=== PATIENT | female | born 1995 | race African-American/Black ===

== ENCOUNTER 2017-04-02 19:43 | Emergency (ER) | payer OTHER ==
[~2017-04-02] VITALS: Ht 157.5 cm; Wt 59.0 kg
[~2017-04-02 19:43] MED LIST: PENICILLIN V P500 MG PO; TYLENOL EXTRA500 MG PO
[2017-04-02] MEDS ORDERED: PRENATAL GUMMI1 EACH (19:51)
[2017-04-02] MEDS ORDERED: [UNRECOGNIZED DRUG - REMARK] (19:52)
[2017-04-02 20:24] LABS: URINE BILIRUBIN NEGATIVE (Negative); URINE BLOOD NEGATIVE (Negative); URINE CLARITY CLEAR; URINE COLOR YELLOW; URINE GLUCOSE-RANDOM NEGATIVE (Negative); URINE KETONES TRACE (Negative); URINE LEUKOCYTES NEGATIVE (Negative); URINE NITRITE NEGATIVE (Negative); URINE PROTEIN TRACE (Negative); URINE SPECIFIC GRAVITY >= 1.030 (1.005-1.030); URINE UROBILINOGEN 0.2 E.U./dl (0.2-1.0)
[2017-04-02] MEDS ORDERED: FLAGYL500 MG PO (20:45)
[2017-04-02 20:50] VITALS: BP 124/75
== END 2017-04-02 20:51 | disposition home or self-care (01) ==
LOC: M.ERS 19:43
PROVIDERS: Physician Assistant
DX: N76.0 Acute vaginitis (principal); Z21 Asymptomatic human immunodeficiency virus [HIV] infection status

== ENCOUNTER 2017-07-09 18:06 | Emergency (ER) | payer OTHER, MEDICAID ==
[~2017-07-09] VITALS: Ht 157.5 cm; Wt 51.7 kg
[~2017-07-09 18:06] MED LIST changes: +FLAGYL500 MG PO; +PRENATAL GUMMI1 EACH; +[UNRECOGNIZED DRUG - REMARK]
[2017-07-09 18:35] LABS: ABSOLUTE EOSINOPHILS 0.1 thou/uL (0.0-0.7); ABSOLUTE LYMPHOCYTES 1.4 thou/uL (0.8-5.3); ABSOLUTE MONOCYTES 0.4 thou/uL (0.0-1.2); ABSOLUTE NEUTROPHILS 4.5 thou/uL (1.6-8.1); BASOPHILS 0.6 %; EOSINOPHILS 1.3 %; HEMATOCRIT 42.7 % (37.0-47.0); HEMOGLOBIN 13.5 gm/dL (12.0-15.0); LYMPHOCYTES 22.2 %; MCH 25.2 pg (26.0-34.0); MCHC 31.5 g/dL (28.0-37.0); MONOCYTES 6.9 %; MPV 8.3 fl. (7.2-11.1); NUCLEATED RBCS 0 /100WBC; PLATELET COUNT* 237 thou/uL (150-400); RBC 5.34 mil/uL (4.20-5.00); RDW-CV 19.8 % (10.5-14.5); WBC 6.4 thou/uL (4.0-11.0)
[2017-07-09 18:41] LABS: CALCIUM 9.1 mg/dL (8.5-10.1); POTASSIUM 3.2 mmol/L (3.5-5.1)
[2017-07-09 18:44] LABS: URINE BILIRUBIN NEGATIVE (Negative); URINE BLOOD 2+ (Negative); URINE CLARITY CLEAR; URINE COLOR YELLOW; URINE GLUCOSE-RANDOM NEGATIVE (Negative); URINE KETONES NEGATIVE (Negative); URINE LEUKOCYTES-REFLEX NEGATIVE (Negative); URINE NITRITE-REFLEX NEGATIVE (Negative); URINE PROTEIN TRACE (Negative); URINE SPECIFIC GRAVITY >= 1.030 (1.005-1.030); URINE UROBILINOGEN 0.2 E.U./dl (0.2-1.0)
[2017-07-09 18:45] LABS: ALBUMIN 3.4 g/dL (3.4-5.0); TOTAL BILIRUBIN 0.3 mg/dL (<0.1-1.0); TOTAL PROTEIN 8.8 g/dL (6.4-8.2)
[2017-07-09 18:55] LABS: MUCUS >6 Heavy strn/LPF (None Seen); SQUAMOUS >10 Many /LPF (0-3)
[2017-07-09 18:56] LABS: URINE WBC-REFLEX 0-5 Rare /HPF (0-5)
[2017-07-09 18:57] LABS: HYALINE CASTS 0-3 Few /LPF (None Seen)
[2017-07-09 18:58] LABS: BACTERIA-REFLEX 1-9 Few /HPF (None Seen); CRYSTALS None Seen /LPF (None Seen); URINE RBC 0-2 Rare /HPF (0-2)
[2017-07-09] MEDS ORDERED: MIRALAX17 GM PO (19:25)
[2017-07-09] MEDS ORDERED: HYDROCODONE-AP1 EAC6 PO (19:25)
[2017-07-09] MEDS ORDERED: NAPROSYN500 MG PO (19:26)
[2017-07-09] MEDS ORDERED: ACETAMINOPHEN-1 EAC1 PO (19:26)
[2017-07-09 19:54] VITALS: BP 97/54
== END 2017-07-09 19:55 | disposition home or self-care (01) ==
LOC: M.ERS 18:06
PROVIDERS: Physician Assistant
DX: R10.30 Lower abdominal pain, unspecified (principal)

== ENCOUNTER 2017-09-20 11:47 | Emergency (ER) | payer OTHER, MEDICAID ==
[~2017-09-20] VITALS: Ht 157.5 cm; Wt 49.9 kg
[~2017-09-20 11:47] MED LIST changes: +ACETAMINOPHEN-1 EAC1 PO; +HYDROCODONE-AP1 EAC6 PO; +MIRALAX17 GM PO; +NAPROSYN500 MG PO
[2017-09-20] MEDS ORDERED: STRIBILD TABLE1 EACH PO (12:03)
[2017-09-20 12:37] LABS: URINE BILIRUBIN NEGATIVE (Negative); URINE BLOOD 1+ (Negative); URINE CLARITY CLEAR; URINE COLOR YELLOW; URINE GLUCOSE-RANDOM NEGATIVE (Negative); URINE KETONES NEGATIVE (Negative); URINE LEUKOCYTES-REFLEX NEGATIVE (Negative); URINE NITRITE-REFLEX NEGATIVE (Negative); URINE PROTEIN NEGATIVE (Negative); URINE SPECIFIC GRAVITY >= 1.030 (1.005-1.030); URINE UROBILINOGEN 0.2 E.U./dl (0.2-1.0)
[2017-09-20 12:53] LABS: BACTERIA-REFLEX 1-9 Few /HPF (None Seen); CASTS None Seen /LPF (None Seen); CRYSTALS None Seen /LPF (None Seen); MUCUS 4-6 Moderate strn/LPF (None Seen); SQUAMOUS 4-10 Moderate /LPF (0-3); URINE RBC 3-10 Few /HPF (0-2); URINE WBC-REFLEX 0-5 Rare /HPF (0-5)
[2017-09-20 13:21] VITALS: BP 111/79
== END 2017-09-20 13:22 | disposition home or self-care (01) ==
LOC: M.ERS 11:47
PROVIDERS: Nurse Practitioner Family
DX: K59.00 Constipation, unspecified (principal); N91.2 Amenorrhea, unspecified

== ENCOUNTER 2017-10-13 19:01 | Emergency (ER) | payer OTHER, MEDICAID ==
[~2017-10-13] VITALS: Ht 162.6 cm; Wt 49.9 kg
[~2017-10-13 19:01] MED LIST changes: +STRIBILD TABLE1 EACH PO
[2017-10-13] MEDS ORDERED: AMOXICILLIN 50500 MG PO (19:48)
[2017-10-13] MEDS ORDERED: NORCO 5-325 TA1 EACH PO (19:48)
[2017-10-13 20:00] VITALS: BP 108/68
== END 2017-10-13 20:01 | disposition home or self-care (01) ==
LOC: M.ERS 19:01
DX: K08.89 Other specified disorders of teeth and supporting structures (principal); Z21 Asymptomatic human immunodeficiency virus [HIV] infection status

== ENCOUNTER 2017-12-22 12:35 | Emergency (ER) | payer OTHER, MEDICAID ==
[~2017-12-22] VITALS: Ht 157.5 cm; Wt 52.2 kg
[~2017-12-22 12:35] MED LIST changes: +AMOXICILLIN 50500 MG PO; +NORCO 5-325 TA1 EACH PO
[2017-12-22 13:25] VITALS: BP 137/82
== END 2017-12-22 13:26 | disposition home or self-care (01) ==
LOC: M.ERS 12:35
DX: N91.2 Amenorrhea, unspecified (principal); Z20.2 Contact with and (suspected) exposure to infections with a predominantly sexual mode of transmission; J06.9 Acute upper respiratory infection, unspecified; Z32.02 Encounter for pregnancy test, result negative

== ENCOUNTER 2017-12-29 17:56 | Emergency (ER) | payer OTHER, MEDICAID ==
[~2017-12-29] VITALS: Ht 157.5 cm; Wt 54.4 kg
[2017-12-29 18:43] LABS: URINE BILIRUBIN NEGATIVE (Negative); URINE BLOOD 2+ (Negative); URINE CLARITY CLEAR; URINE COLOR YELLOW; URINE GLUCOSE-RANDOM NEGATIVE (Negative); URINE KETONES NEGATIVE (Negative); URINE LEUKOCYTES-REFLEX 1+ (Negative); URINE NITRITE-REFLEX NEGATIVE (Negative); URINE PROTEIN 2+ (Negative); URINE UROBILINOGEN 0.2 E.U./dl (0.2-1.0)
[2017-12-29 18:56] LABS: SQUAMOUS 0-3 Few /LPF (0-3); URINE RBC 3-10 Few /HPF (0-2); URINE WBC-REFLEX >25 Many /HPF (0-5)
[2017-12-29 18:57] LABS: CASTS None Seen /LPF (None Seen); CRYSTALS None Seen /LPF (None Seen)
[2017-12-29] MEDS ORDERED: BACTRIM DS TAB1 EACH PO (19:10)
[2017-12-29] MEDS ORDERED: ACETAMINOPHEN-1 EAC1 PO (19:23)
[2017-12-29 19:29] VITALS: BP 103/68
== END 2017-12-29 19:29 | disposition home or self-care (01) ==
LOC: M.ERS 17:56
PROVIDERS: Physician Assistant
DX: N39.0 Urinary tract infection, site not specified (principal); K12.0 Recurrent oral aphthae

== ENCOUNTER 2018-01-27 20:05 | Emergency (ER) | payer OTHER, MEDICAID ==
[~2018-01-27] VITALS: Ht 157.5 cm; Wt 52.2 kg
[~2018-01-27 20:05] MED LIST changes: +BACTRIM DS TAB1 EACH PO
[2018-01-27 20:31] LABS: URINE BILIRUBIN NEGATIVE (Negative); URINE BLOOD NEGATIVE (Negative); URINE CLARITY CLEAR; URINE COLOR YELLOW; URINE GLUCOSE-RANDOM NEGATIVE (Negative); URINE KETONES TRACE (Negative); URINE LEUKOCYTES-REFLEX NEGATIVE (Negative); URINE NITRITE-REFLEX NEGATIVE (Negative); URINE PROTEIN NEGATIVE (Negative); URINE SPECIFIC GRAVITY >= 1.030 (1.005-1.030); URINE UROBILINOGEN 0.2 E.U./dl (0.2-1.0)
[2018-01-27 21:42] LABS: ABSOLUTE EOSINOPHILS 0.1 thou/uL (0.0-0.7); ABSOLUTE LYMPHOCYTES 1.5 thou/uL (0.8-5.3); ABSOLUTE MONOCYTES 0.4 thou/uL (0.0-1.2); ABSOLUTE NEUTROPHILS 1.9 thou/uL (1.6-8.1); BASOPHILS 0.4 %; EOSINOPHILS 2.5 %; HEMATOCRIT 38.3 % (37.0-47.0); HEMOGLOBIN 12.3 gm/dL (12.0-15.0); LYMPHOCYTES 37.4 %; MCH 26.4 pg (26.0-34.0); MCHC 32.1 g/dL (28.0-37.0); MCV 82.4 fL (80.0-100.0); MONOCYTES 10.5 %; MPV 7.9 fl. (7.2-11.1); NUCLEATED RBCS 0 /100WBC; PLATELET COUNT* 216 thou/uL (150-400); POLYS 49.2 %; RBC 4.64 mil/uL (4.20-5.00); RDW-CV 13.8 % (10.5-14.5); WBC 3.9 thou/uL (4.0-11.0)
[2018-01-27 21:48] LABS: CALCIUM 8.8 mg/dL (8.5-10.1); CREATININE 0.9 mg/dL (0.6-1.3); POTASSIUM 3.8 mmol/L (3.5-5.1)
[2018-01-27 21:53] LABS: ALBUMIN 3.1 g/dL (3.4-5.0); TOTAL BILIRUBIN 0.1 mg/dL (<0.1-1.0); TOTAL PROTEIN 8.1 g/dL (6.4-8.2)
[2018-01-28 00:40] VITALS: BP 103/52
== END 2018-01-28 00:45 | disposition home or self-care (01) ==
LOC: M.ERS 20:05
PROVIDERS: Personal Emergency Response Attendant
DX: Z33.1 Pregnant state, incidental (principal); R10.30 Lower abdominal pain, unspecified; R11.2 Nausea with vomiting, unspecified

== ENCOUNTER 2018-03-13 18:45 | Emergency (ER) | payer OTHER, MEDICAID ==
[~2018-03-13] VITALS: Ht 157.5 cm; Wt 46.7 kg
[2018-03-13] MEDS ORDERED: CYCLOBENZAPRINE5 MG PO (20:33)
[2018-03-13 21:16] VITALS: BP 108/71
== END 2018-03-13 21:05 | disposition home or self-care (01) ==
LOC: M.ERS 18:45
DX: O9A.211 Injury, poisoning and certain other consequences of external causes complicating pregnancy, first trimester (principal); Z3A.12 12 weeks gestation of pregnancy; S29.012A Strain of muscle and tendon of back wall of thorax, initial encounter; X58.XXXA Exposure to other specified factors, initial encounter; Y93.89 Activity, other specified; Y92.89 Other specified places as the place of occurrence of the external cause; Y99.8 Other external cause status

== ENCOUNTER 2018-06-10 21:27 | Emergency (ER) | payer OTHER, MEDICAID ==
[~2018-06-10] VITALS: Ht 160 cm; Wt 49.4 kg
[~2018-06-10 21:27] MED LIST changes: +CYCLOBENZAPRINE5 MG PO
[2018-06-10 22:06] LABS: URINE BILIRUBIN NEGATIVE (Negative); URINE BLOOD NEGATIVE (Negative); URINE CLARITY CLEAR; URINE COLOR YELLOW; URINE GLUCOSE-RANDOM NEGATIVE (Negative); URINE KETONES NEGATIVE (Negative); URINE LEUKOCYTES-REFLEX NEGATIVE (Negative); URINE NITRITE-REFLEX NEGATIVE (Negative); URINE PROTEIN NEGATIVE (Negative); URINE SPECIFIC GRAVITY >= 1.030 (1.005-1.030); URINE UROBILINOGEN 0.2 E.U./dl (0.2-1.0)
[2018-06-10 22:16] LABS: ABSOLUTE EOSINOPHILS 0.1 thou/uL (0.0-0.7); ABSOLUTE LYMPHOCYTES 1.7 thou/uL (0.8-5.3); ABSOLUTE MONOCYTES 0.6 thou/uL (0.0-1.2); ABSOLUTE NEUTROPHILS 4.9 thou/uL (1.6-8.1); BASOPHILS 0.3 %; EOSINOPHILS 0.8 %; HEMATOCRIT 33.1 % (37.0-47.0); HEMOGLOBIN 10.7 gm/dL (12.0-15.0); LYMPHOCYTES 23.8 %; MCH 26.3 pg (26.0-34.0); MCHC 32.3 g/dL (28.0-37.0); MCV 81.4 fL (80.0-100.0); MONOCYTES 8.6 %; MPV 8.3 fl. (7.2-11.1); NUCLEATED RBCS 0 /100WBC; PLATELET COUNT* 222 thou/uL (150-400); POLYS 66.5 %; RBC 4.06 mil/uL (4.20-5.00); RDW-CV 14.3 % (10.5-14.5); WBC 7.4 thou/uL (4.0-11.0)
[2018-06-10 22:32] LABS: ALBUMIN 2.2 g/dL (3.4-5.0); CALCIUM 8.7 mg/dL (8.5-10.1); CREATININE 0.7 mg/dL (0.6-1.3); POTASSIUM 3.7 mmol/L (3.5-5.1); TOTAL BILIRUBIN 0.1 mg/dL (<0.1-1.0); TOTAL PROTEIN 7.3 g/dL (6.4-8.2)
[2018-06-10] MEDS ORDERED: FLAGYL500 M1 PO (22:56)
[2018-06-10] MEDS ORDERED: FLEXERIL PO (22:56)
[2018-06-11 00:01] VITALS: BP 106/57
== END 2018-06-11 00:01 | disposition home or self-care (01) ==
LOC: M.ERS 21:27
PROVIDERS: Nurse Practitioner Family
DX: O9A.212 Injury, poisoning and certain other consequences of external causes complicating pregnancy, second trimester (principal); S29.012A Strain of muscle and tendon of back wall of thorax, initial encounter; N76.0 Acute vaginitis; B96.89 Other specified bacterial agents as the cause of diseases classified elsewhere; Z21 Asymptomatic human immunodeficiency virus [HIV] infection status; Z3A.00 Weeks of gestation of pregnancy not specified; X58.XXXA Exposure to other specified factors, initial encounter; Y92.89 Other specified places as the place of occurrence of the external cause; Y93.89 Activity, other specified; Y99.8 Other external cause status

== ENCOUNTER 2018-12-04 21:30 | Emergency (ER) | payer OTHER ==
[~2018-12-04] VITALS: Ht 157.5 cm; Wt 52.6 kg
[~2018-12-04 21:30] MED LIST changes: +FLAGYL500 M1 PO; +FLEXERIL PO
[2018-12-04 22:38] VITALS: BP 129/87
== END 2018-12-04 22:40 | disposition home or self-care (01) ==
LOC: M.ERS 21:30
DX: S00.551A Superficial foreign body of lip, initial encounter (principal); X58.XXXA Exposure to other specified factors, initial encounter; Y93.89 Activity, other specified; Y92.89 Other specified places as the place of occurrence of the external cause; Y99.8 Other external cause status

== ENCOUNTER → 2019-05-29 | Emergency (ER) | payer OTHER ==
[~2019-05-29] VITALS: Ht 157.5 cm; Wt 49.9 kg
[~2019-05-29] MED LIST changes: +TRIAMCINOLONE A80 G2 TOP
[2019-05-29 21:15] VITALS: BP 118/62
== END ==
LOC: M.ERS 21:01
DX: L42 Pityriasis rosea (principal)

== ENCOUNTER 2019-08-08 13:08 | Emergency (ER) | payer OTHER ==
[~2019-08-08] VITALS: Ht 160 cm; Wt 52.2 kg
[2019-08-08 13:36] LABS: URINE BILIRUBIN NEGATIVE (Negative); URINE BLOOD 3+ (Negative); URINE CLARITY CLEAR; URINE COLOR YELLOW; URINE GLUCOSE-RANDOM NEGATIVE (Negative); URINE KETONES NEGATIVE (Negative); URINE LEUKOCYTES-REFLEX 2+ (Negative); URINE NITRITE-REFLEX POSITIVE (Negative); URINE PROTEIN 2+ (Negative); URINE SPECIFIC GRAVITY >= 1.030 (1.005-1.030); URINE UROBILINOGEN 0.2 E.U./dl (0.2-1.0)
[2019-08-08 13:42] LABS: RENAL EPITHELIAL CELLS 4-10 Moderate /LPF (None Seen); SQUAMOUS 4-10 Moderate /LPF (0-3)
[2019-08-08 13:43] LABS: BACTERIA-REFLEX >30 Many /HPF (None Seen); CASTS None Seen /LPF (None Seen); CRYSTALS None Seen /LPF (None Seen); MUCUS 0-3 Light strn/LPF (None Seen); URINE RBC 3-10 Few /HPF (0-2)
[2019-08-08] MEDS ORDERED: KEFLEX500 M1 PO (13:44)
[2019-08-08] MEDS ORDERED: PYRIDIUM100 M1 PO (13:44)
[2019-08-08 14:00] VITALS: BP 117/57
== END 2019-08-08 14:00 | disposition home or self-care (01) ==
LOC: M.ERS 13:08
PROVIDERS: Nurse Practitioner Family
DX: N39.0 Urinary tract infection, site not specified (principal)

== ENCOUNTER 2020-08-16 11:29 | Emergency (ER) | payer OTHER, MEDICAID ==
[~2020-08-16] VITALS: Ht 157.5 cm; Wt 53.5 kg
[~2020-08-16 11:29] MED LIST changes: +KEFLEX500 M1 PO; +PYRIDIUM100 M1 PO
[2020-08-16] MEDS ORDERED: BIKTARVY 50-201 EACH PO (11:42)
[2020-08-16] MEDS ORDERED: CYCLOBENZAPRINE5 MG PO (11:55)
[2020-08-16] MEDS ORDERED: AUGMENTIN 875-1 EACH PO (11:55)
[2020-08-16] MEDS ORDERED: IBU600 MG PO (11:55)
[2020-08-16 12:02] VITALS: BP 117/70
== END 2020-08-16 12:08 | disposition home or self-care (01) ==
LOC: M.ERS 11:29
DX: S46.812A Strain of other muscles, fascia and tendons at shoulder and upper arm level, left arm, initial encounter (principal); Y08.89XA Assault by other specified means, initial encounter; Y93.9 Activity, unspecified; Y92.89 Other specified places as the place of occurrence of the external cause; Y99.8 Other external cause status

== ENCOUNTER 2020-12-11 09:50 | Emergency (ER) | payer OTHER, MEDICAID ==
[~2020-12-11] VITALS: Ht 157.5 cm; Wt 49.4 kg
[~2020-12-11 09:50] MED LIST changes: +AUGMENTIN 875-1 EACH PO; +BIKTARVY 50-201 EACH PO; +IBU600 MG PO
[2020-12-11] MEDS ORDERED: ENBRACE HR SOF1 EACH PO (10:24)
[2020-12-11 10:52] LABS: ABSOLUTE LYMPHOCYTES 0.7 thou/uL (0.8-5.3); ABSOLUTE MONOCYTES 0.6 thou/uL (0.0-1.2); ABSOLUTE NEUTROPHILS 6.4 thou/uL (1.6-8.1); BASOPHILS 0.5 %; EOSINOPHILS 0.2 %; HEMATOCRIT 35.1 % (37.0-47.0); HEMOGLOBIN 11.6 gm/dL (12.0-15.0); LYMPHOCYTES 8.8 %; MCH 27.1 pg (26.0-34.0); MCHC 32.9 g/dL (28.0-37.0); MCV 82.4 fL (80.0-100.0); MONOCYTES 7.8 %; MPV 7.5 fl. (7.2-11.1); NUCLEATED RBCS 0 /100WBC; PLATELET COUNT* 175 thou/uL (150-400); POLYS 82.7 %; RBC 4.26 mil/uL (4.20-5.00); RDW-CV 13.2 % (10.5-14.5); WBC 7.7 thou/uL (4.0-11.0)
[2020-12-11 11:01] LABS: CALCIUM 8.6 mg/dL (8.5-10.1); CREATININE 0.7 mg/dL (0.6-1.3); POTASSIUM 3.5 mmol/L (3.5-5.1)
[2020-12-11 11:06] LABS: ALBUMIN 2.7 g/dL (3.4-5.0); TOTAL BILIRUBIN 0.3 mg/dL (<0.1-1.0); TOTAL PROTEIN 7.9 g/dL (6.4-8.2)
[2020-12-11 11:57] LABS: URINE BILIRUBIN NEGATIVE (Negative); URINE BLOOD NEGATIVE (Negative); URINE CLARITY CLEAR; URINE COLOR YELLOW; URINE GLUCOSE-RANDOM NEGATIVE (Negative); URINE KETONES NEGATIVE (Negative); URINE LEUKOCYTES-REFLEX TRACE (Negative); URINE NITRITE-REFLEX NEGATIVE (Negative); URINE PROTEIN NEGATIVE (Negative); URINE UROBILINOGEN 0.2 E.U./dl (0.2-1.0)
[2020-12-11 12:00] LABS: SQUAMOUS 4-10 Moderate /LPF (0-3)
[2020-12-11 12:01] LABS: BACTERIA-REFLEX 1-9 Few /HPF (None Seen); URINE RBC 0-2 Rare /HPF (0-2); URINE WBC-REFLEX 6-15 Few /HPF (0-5)
[2020-12-11 12:02] LABS: CASTS None Seen /LPF (None Seen); CRYSTALS None Seen /LPF (None Seen); MUCUS 0-3 Light strn/LPF (None Seen)
[2020-12-11] MEDS ORDERED: CEPHALEXIN500 MG PO (12:51)
[2020-12-11 13:04] VITALS: BP 102/48
== END 2020-12-11 13:04 | disposition home or self-care (01) ==
LOC: M.ERS 09:50
PROVIDERS: Emergency Medicine Emergency Medical Services; Physician Assistant
DX: O23.42 Unspecified infection of urinary tract in pregnancy, second trimester (principal); Z3A.16 16 weeks gestation of pregnancy